=== PATIENT | male | born 1970 | race American Indian/Alaskan Native ===

== ENCOUNTER 2021-11-27 15:51 | Emergency (ER) | payer SELFPAY ==
[2021-11-27 17:06] VITALS: BP 168/89
== END 2021-11-28 03:33 | disposition left against medical advice (07) ==
LOC: ED 15:51
DX: R07.89 Other chest pain (principal); R51.9 Headache, unspecified; M79.18 Myalgia, other site; Z53.21 Procedure and treatment not carried out due to patient leaving prior to being seen by health care provider
CPT/HCPCS: 93005